=== PATIENT | male | born 1990 | race Caucasian/White ===

== ENCOUNTER 2023-03-01 08:49 | Emergency (ER) | payer OTHER, SELFPAY ==
[2023-03-01 09:08] VITALS: BP 119/89; PULSE 79; RESP 16; TEMP 36.7; O2SAT 99
--- NOTE | 2023-03-01 09:15 | ED.URI ---
HPI - URI/Sore Throat General Chief Complaint: Upper Respiratory Infection Stated Complaint: decreased hearing right ear,throat hurts Time Seen by Provider: 03/01/23 09:15 Source: patient Mode of arrival: ambulatory Limitations: no limitations History of Present Illness HPI Narrative: 32-year-old male presents with complaint of intermittent sinus congestion, pressure, postnasal drainage for the past 3-4 weeks. Patient was prescribed amoxicillin during virtual visit for sinus infection 3 weeks ago. Reports that symptoms resolved for only a few days before sinus congestion, pressure started again. Began having right ear pain , decreased hearing 2 days ago. Takes Zyrtec daily. Uses Flonase intermittently. Has been taking Mucinex since congestion and right ear pain started. Afebrile. all systems reviewed and negative except as noted above. Related Data Home Medications Medication Instructions Recorded Confirmed cetirizine 10 mg tablet (Zyrtec) 10 mg PO DAILY 03/01/23 03/01/23 Allergies Allergy/AdvReac Type Severity Reaction Status Date / Time azithromycin Allergy Intermediate Rash Verified 03/01/23 09:21 sulfamethoxazole Allergy Unknown Unknown Verified 03/01/23 09:21 [From Bactrim] trimethoprim [From Bactrim] Allergy Unknown Unknown Verified 03/01/23 09:21 Review of Systems Review of Systems: CONSTITUTIONAL: Denies fever, chills, or sweats. EYES: Denies visual changes, redness, or discharge. ENT: Reports rhinorrhea, congestion, sore throat, right ear pain. CARDIOVASCULAR: Denies chest pain, palpitations, or edema. RESPIRATORY: Denies cough or dyspnea. GASTROINTESTINAL: Denies abdominal pain, nausea, vomiting, or diarrhea. GENITOURINARY: Denies dysuria or hematuria. SKIN: Denies rash or itching. MUSCULOSKELETAL: Denies back pain, joint pain, or myalgia. NEUROLOGIC: Denies headache, numbness, or weakness. PSYCHIATRIC: Denies anxiety or depression. All other systems reviewed are negative, except as documented in HPI. PMFSH Comments At time of signature, agree with nursing past medical, surgical, social and family history. There is no relevant family history pertinent to the presenting complaint. Exam Narrative: GENERAL: This is a well-nourished, well-developed patient, in no apparent distress. HEAD: normocephalic, atraumatic. EYES: PERRL. Sclera clear/white. Vision is grossly intact. EARS: External ears normal, auditory canals clear and without drainage, Left TM normal. Right TM erythematous, bulging with yellow fluid. No perforation bilaterally.Hearing grossly intact. NOSE: External nose normal with Clear nasal drainage, erythema and swelling to bilateral nares. THROAT: Mucous membranes moist, Erythematous with postnasal drainage. No significant swelling or exudates. NECK: Neck supple, non-tender without lymphadenopathy, masses or thyromegaly. CARDIOVASCULAR: Regular rate and rhythm without murmurs, gallops, or rubs. RESPIRATORY: Clear to auscultation. Breath sounds equal bilaterally. No wheezes, rales, or rhonchi. SKIN: warm, Dry, intact with no suspicious lesions or rash, good texture and turgor. NEURO: awake, alert, and oriented to person, place and time. There were no obvious focal neurologic abnormalities. EXTREMITIES: No joint tenderness, effusion, or edema noted. Course Course Level of Care: Express Care Visit Vital Signs Vital signs: Vital Signs Temperature 36.7 C 03/01/23 09:08 Pulse Rate 79 03/01/23 09:08 Respiratory Rate 16 03/01/23 09:08 Blood Pressure 119/89 03/01/23 09:08 Pulse Oximetry 99 03/01/23 09:08 Oxygen Delivery Room Air 03/01/23 09:08 Temperature 36.7 C 03/01/23 09:08 Pulse Rate 79 03/01/23 09:08 Respiratory Rate 16 03/01/23 09:08 Blood Pressure 119/89 03/01/23 09:08 Pulse Oximetry 99 03/01/23 09:08 Oxygen Delivery Room Air 03/01/23 09:08 Reviewed MDM - URI/Sore Throat MDM Narrative Medical decisio
== END 2023-03-01 09:33 | disposition home or self-care (01) ==
PROVIDERS: Emergency Provider Nurse Practitioner Family
DX: H66.91 Otitis media, unspecified, right ear (principal); J01.90 Acute sinusitis, unspecified
CPT/HCPCS: 87081; 87880; 99203; G0463

== ENCOUNTER 2023-04-11 19:10 | Emergency (ER) | payer OTHER, SELFPAY ==
--- NOTE | 2023-04-11 19:18 | ED.GENADULT ---
HPI - General Adult General Chief complaint: Upper Respiratory Infection Stated complaint: Earache, Sinus Infection Time Seen by Provider: 04/11/23 19:18 Source: patient Mode of arrival: ambulatory Limitations: no limitations History of Present Illness HPI narrative: 33-year-old male patient presents to the [facility] with complaints of right-sided ear fullness, congestion and yellow sinus discharge. Denies fevers, body aches or chills. Denies coughing, chest pain or shortness of breath. Denies abdominal pain, nausea, vomiting or diarrhea. Related Data Home Medications Medication Instructions Recorded Confirmed cetirizine 10 mg tablet (Zyrtec) 10 mg PO DAILY 03/01/23 04/11/23 Allergies Allergy/AdvReac Type Severity Reaction Status Date / Time azithromycin AdvReac Mild Rash Verified 04/11/23 19:12 sulfamethoxazole AdvReac Mild Rash Verified 04/11/23 19:12 [From Bactrim] trimethoprim [From Bactrim] AdvReac Mild Rash Verified 04/11/23 19:12 Review of Systems Review of Systems: CONSTITUTIONAL: Denies fever, chills, or sweats. EYES: Denies visual changes, redness, or discharge. ENT: Positive rhinorrhea, congestion, denies sore throat, positive right otalgia. CARDIOVASCULAR: Denies chest pain, palpitations, or edema. RESPIRATORY: Denies cough or dyspnea. GASTROINTESTINAL: Denies abdominal pain, nausea, vomiting, or diarrhea. GENITOURINARY: Denies dysuria or hematuria. SKIN: Denies rash or itching. MUSCULOSKELETAL: Denies back pain, joint pain, or myalgia. NEUROLOGIC: Denies headache, numbness, or weakness. PSYCHIATRIC: Denies anxiety or depression. [facility] Past Medical History Medical History (Updated 04/11/23 @ 19:32 by MARTIN Garcia) No significant past medical history Comments At the time of my signature I agree with nursing past medical history, surgical, social, and family history. There is no relevant family history pertinent to the presenting complaint. Exam Narrative: GENERAL: Well-appearing, well-nourished, and in no acute distress. HEAD: Normocephalic, atraumatic. EYES: PERRLA and EOMI. ENT: Nares clear, no rhinorrhea or epistaxis. Mucous membranes moist. posterior pharynx with no erythema, tonsillar enlargement, exudates or lesions present. There is fluid noted behind the right TM on exam. No erythema or foreign bodies the canal. NECK: Supple. No lymphadenopathy CHEST: Clear to auscultation. No respiratory distress. HEART: Regular rate and rhythm. No murmur heard. Normal peripheral pulses. ABDOMEN: Soft, nontender, nondistended, normal active bowel sounds. EXTREMITIES: Normal range of motion. No edema. SKIN: Warm, dry, no rash. NEURO: No focal deficits. Alert and oriented x3. Course Course Level of Care: Express Care Visit Vital Signs Vital signs: Vital Signs Temperature 36.3 C L 04/11/23 19:22 Pulse Rate 76 04/11/23 19:22 Respiratory Rate 18 04/11/23 19:22 Blood Pressure 145/87 H 04/11/23 19:22 Pulse Oximetry 99 04/11/23 19:22 Oxygen Delivery Room Air 04/11/23 19:22 Temperature 36.3 C L 04/11/23 19:22 Pulse Rate 76 04/11/23 19:22 Respiratory Rate 18 04/11/23 19:22 Blood Pressure 145/87 H 04/11/23 19:22 Pulse Oximetry 99 04/11/23 19:22 Oxygen Delivery Room Air 04/11/23 19:22 vital signs reviewed Medical Decision Making MDM Narrative Medical decision making narrative: Plan care patient is discharged home with some oral steroids to help decrease the fluid behind the eardrum. Discussed patient he can continue taking his Zyrtec and Flonase to help prevent the fluid build back up in permanent promote sinus drainage. Patient verbalized understanding denies any other questions or concerns at this time. Differential Diagnosis Differential Diagnosis: differential diagnosis: Allergic rhinitis, chronic sinusitis, tonsillitis, acute sinusitis, infectious mononucleosis, seasonal influenza, pertussis, diphtheria, meningococc
[2023-04-11 19:22] VITALS: BP 145/87; PULSE 76; RESP 18; TEMP 36.3; O2SAT 99
== END 2023-04-11 19:33 | disposition home or self-care (01) ==
PROVIDERS: Emergency Provider Nurse Practitioner Family
DX: H73.891 Other specified disorders of tympanic membrane, right ear (principal); J32.9 Chronic sinusitis, unspecified
CPT/HCPCS: 99213; G0463

== ENCOUNTER 2023-12-17 10:30 | Outpatient (CLI) | payer BC, SELFPAY ==
[2023-12-17 13:41] LABS: Basophils Percent Auto 0.6 % (0.2-1.2); Eosinophils Absolute Auto 0.1 K/mm3 (0-0.3); Eosinophils Percent Auto 2.2 % (0-4.4); Hematocrit 44.4 % (42.0-52.0); Hemoglobin 15.1 g/dL (14.0-18.0); Immature Granulocyte Absolute 0.01 K/mm3 (0.00-0.031); Immature Granulocyte Percent A 0.2 % (0-0.5); Lymphocytes Absolute Auto 1.39 K/mm3 (0.9-3.2); Lymphocytes Percent Auto 27.4 % (18.3-44.2); Mean Corpuscular Hemoglobin 30.9 pg (26-34); Mean Platelet Volume 9.9 fl (7.4-10.4); Monocytes Absolute Auto 0.3 K/mm3 (0.1-0.6); Monocytes Percent Auto 6.3 % (2.6-8.5); Neutrophils Absolute Auto 3.2 K/mm3 (1.3-6.7); Neutrophils Percent Auto 63.3 % (45.5-73.1); Platelet Count Result 246 k/mm3 (150-375); Red Blood Count 4.88 M/mm3 (4.6-6.20); Red Cell Distribution Width 12.3 % (11.5-14.5); White Blood Count 5.1 K/mm3 (4.5-10.0)
[2023-12-17 13:55] LABS: Alanine Aminotransferase 27 U/L (6-50); Albumin Level 4.8 g/dL (3.5-5.1); Alkaline Phosphatase 78 U/L (38-126); Anion Gap 12 mmol/L (4-12); Aspartate Amino Transferase 56 U/L (17-59); Bilirubin,Total 0.6 mg/dL (0.2-1.3); Blood Urea Nitrogen 10 mg/dL (9-20); Calcium 9.5 mg/dL (8.4-10.2); Carbon Dioxide 28 mmol/L (22-30); Chloride 103 mmol/L (98-107); Cholesterol 162 mg/dL (0-200); Estimated Glomerular Filt Rate > 60; Glucose 125 mg/dL (65-110); HDL Direct 47 mg/dL; Potassium 4.7 mmol/L (3.4-5.0); Sodium 143 mmol/L (137-145); Triglycerides 94 mg/dL (<150)
[2023-12-17 14:08] LABS: LDL Cholesterol Direct 82 mg/dL
[2023-12-17 16:25] LABS: Hemoglobin A1C 4.7 % (<5.7)
[2023-12-17 18:40] LABS: Thyroid Stimulating Hormone Reflex 0.663 uIU/mL (0.465-4.68)
== END 2023-12-17 10:31 | disposition home or self-care (01) ==
LOC: ANHGOSHLAB 10:31
PROVIDERS: PCP Emergency Medicine; Visit Provider Emergency Medicine
DX: E66.01 Morbid (severe) obesity due to excess calories (principal)
CPT/HCPCS: 36415; 80053; 80061; 83036; 84443; 85025